=== PATIENT | female | born 1980 | race Caucasian/White ===

== ENCOUNTER 2017-12-05 10:53 | Inpatient (IN) | payer OTHER, SELFPAY | END 2017-12-07 13:20 | disposition home or self-care (01) | DRG 766 | PROVIDERS: PCP Family Medicine | DX: O34.211 Maternal care for low transverse scar from previous cesarean delivery (principal); Z30.2 Encounter for sterilization; Z3A.39 39 weeks gestation of pregnancy; Z37.0 Single live birth | CPT/HCPCS: 36415; 59025; 85014; 85018; 85025; 86850; 86900; 86901; 99058; J0690; J1200; J1885; J2274; J2405; J2590; J3010 ==

== ENCOUNTER → 2024-12-20 16:26 | Outpatient (CLI) | payer OTHER, SELFPAY ==
--- NOTE | 2024-12-20 16:30 | DI.MG.S_ITS ---
MM screening mammo BI: 12/20/2024. BI-RADS: 1 CLINICAL: 44-year old female for bilateral screening mammogram. Tyrer-Cuzick lifetime risk of 12.9%. No personal or first-degree family history of breast cancer. PRIOR EXAMS: None. This is a baseline mammogram. MAMMOGRAPHY TECHNIQUE: 2D and 3D (tomosynthesis) digital mammographic views obtained, with additional images as needed for full coverage. Current study was also evaluated with a Computer Aided Detection (CAD) system. DENSITY B. There are scattered areas of fibroglandular density. MAMMOGRAPHY FINDINGS Bilateral: No suspicious mass, asymmetry, microcalcification, or other abnormality seen. IMPRESSION: * No evidence of malignancy. RECOMMENDATIONS Bilateral * Annual screening mammography. OVERALL ASSESSMENT CATEGORY BI-RADS-1: Negative. The [employer] recommends annual screening mammography beginning at age 40 for women with average risk of breast cancer. ELECTRONICALLY SIGNED: Geraldo De La Rosa M.D. on 12/21/2024 at 12:25:07 PM PT Interpreting Station ID: [id number]
== END ==
PROVIDERS: Family Provider Family Medicine; PCP Family Medicine; Referring Provider Family Medicine; Visit Provider Family Medicine
DX: Z12.31 Encounter for screening mammogram for malignant neoplasm of breast (principal)
CPT/HCPCS: 77063; 77067

== ENCOUNTER → 2025-06-04 07:03 | Outpatient (CLI) | payer OTHER, SELFPAY ==
--- NOTE | 2025-06-04 07:04 | DI.US.S_ITS ---
PROCEDURE: US ABDOMEN LIMITED INDICATIONS: NAFLD TECHNIQUE: Real-time scanning was performed of the abdominal and retroperitoneal organs, with image documentation. COMPARISON: None. FINDINGS: Mildly limited visualization secondary to overlying bowel gas and patient bowel habitus. Within limitations: Liver: Mild hepatomegaly with the liver measuring 17.6 cm. Increased hepatic echogenicity compatible with mild steatosis. Gallbladder: Status post cholecystectomy. Biliary ducts: Intrahepatic bile ducts are non-dilated. Extrahepatic bile duct caliber measures 4 mm. Pancreas: Visualized portions of the pancreas are sonographically normal. The body and tail are visualized. Miscellaneous: No free abdominal fluid. IMPRESSION: Mild hepatic steatosis. No acute sonographic abnormality. Dictated by: Carlene Juarez M.D. on 06/04/2025 at 13:41 Approved by: Carlene Juarez M.D. on 06/04/2025 at 13:44
== END ==
LOC: US 07:03
PROVIDERS: Family Provider Family Medicine; PCP Family Medicine; Referring Provider Family Medicine; Visit Provider Family Medicine
DX: K76.0 Fatty (change of) liver, not elsewhere classified (principal); Z90.49 Acquired absence of other specified parts of digestive tract
CPT/HCPCS: 76705